=== PATIENT | male | born 1960 | race Caucasian/White ===

== ENCOUNTER 2019-06-08 07:13 | Emergency (ER) | payer BC ==
[~2019-06-08] VITALS: Ht 180.3 cm; Wt 90.7 kg
[2019-06-08 07:13] VITALS: BP_SYST 148
--- NOTE | 2019-06-08 07:13 | NUR ---
BROUGHT BACK TO BED #8 AND TRIAGED. REPORT GIVEN TO CONOR
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
--- NOTE | 2019-06-08 07:35 | NUR ---
ER at bedside examining patient.
[2019-06-08] MEDS ORDERED: LISI40TA4 PO (07:38)
[2019-06-08] MEDS ORDERED: LEVO25TA7 PO (07:38)
[2019-06-08] MEDS ORDERED: SIMV20TA6 PO (07:38)
--- NOTE | 2019-06-08 07:46 | NUR ---
Medication reconciliation completed with information provided by [facility]. Any prior medication reconciliation on file was reviewed and corrected.
[2019-06-08 08:19] LABS: BASOPHILS % (AUTO) 0.9 % (0.0-2.0); EOSINOPHILS # (AUTO) 0.3 K/uL (0.0-0.4); EOSINOPHILS % (AUTO) 6.9 % (0.0-4.0); LYMPHOCYTES # (AUTO) 1.4 K/uL (1.0-5.5); LYMPHOCYTES % (AUTO) 28.8 % (20.5-51.5); MEAN CORPUSCULAR HEMOGLOBIN 31 pg (27-31); MEAN CORPUSCULAR HGB CONC 34 % (32-36); MEAN CORPUSCULAR VOLUME 91 fL (79.0-98.0); MONOCYTES # (AUTO) 0.4 K/uL (0.0-1.0); NEUTROPHILS # (AUTO) 2.6 K/uL (1.8-7.7); NEUTROPHILS % (AUTO) 55.4 % (40.0-70.0); PLATELET COUNT (AUTO) 172 K/uL (130-430); RED BLOOD CELL COUNT(AUTO) 4.53 MIL/uL (4.2-6.2); RED CELL DISTRIBUTION WIDTH 13.5 % (9.0-15.0); WHITE BLOOD COUNT (AUTO) 4.8 K/uL (4.8-10.8)
[2019-06-08 08:32] LABS: CALCIUM 9.3 mg/dL (8.4-11.0); CREATININE 0.96 mg/dL (0.55-1.30); POTASSIUM 5.1 mmol/L (3.5-5.1)
[2019-06-08 08:36] LABS: ALBUMIN 3.6 g/dL (3.4-4.8); TOTAL BILIRUBIN 0.4 mg/dL (0.0-1.0)
--- NOTE | 2019-06-08 08:42 | NUR ---
Patient transported to radiology via ambulated, accompanied by rad staff.
--- NOTE | 2019-06-08 08:46 | NUR ---
Returned from radiology, [facility] to [facility].
[2019-06-08 12:24] VITALS: BP_SYST 138
--- NOTE | 2019-06-08 12:24 | NUR ---
Patient given written and verbal discharge instructions and verbalizes understanding. ER MD discussed with patient the results and treatment provided. Patient in stable condition. ID arm band removed. Rx of motrin given. Patient educated on pain management and to follow up with PMD. Pain Scale 0. Opportunity for questions provided and answered. Medication side effect fact sheet provided.
== END 2019-06-08 12:24 | disposition home or self-care (01) ==
LOC: SED 07:13
DX: M50.10 Cervical disc disorder with radiculopathy, unspecified cervical region (principal)
CPT/HCPCS: 36415; 71045; 72040-TC; 72141; 80053; 80061; 82550-TC; 83735-TC; 83880; 84484; 85025; 99284